=== PATIENT | male | born 1975 | race Caucasian/White ===

== ENCOUNTER 2016-10-21 11:51 | Emergency (ER) | payer OTHER ==
[~2016-10-21] VITALS: Ht 180.3 cm; Wt 109.3 kg
[~2016-10-21 11:51] MED LIST: IBUPROFEN200 M1 PO; LORTAB 5-325 M1 EACH PO; NORCO 5/3251 TABLET PO; REGLAN10 MG PO
[2016-10-21 13:10] LABS: HEMATOCRIT 42.8 % (38.0-50.0); MCH 29.6 PG (29.0-34.0); MCV 84.4 FL (86-99); MEAN PLAT.VOLUME 9.9 uM^3 (9.0-12.4); PLATELET COUNT 254 K/uL (156-360); RBC DIS.WIDTH-CV 12.8 % (11.8-14.6); RBC DIS.WIDTH-SD 38.6 % (39-53); RED BLOOD COUNT 5.07 M/uL (4.00-5.50)
[2016-10-21 13:18] LABS: CHLORIDE 106 mEq/L (99-109); POTASSIUM 4.1 mEq/L (3.7-5.4); SODIUM 139 mEq/L (136-147)
[2016-10-21 13:21] LABS: GLUCOSE 94 mg/dL (70-99)
[2016-10-21 13:22] LABS: ANION GAP 6 MEQ/L (2-14)
[2016-10-21 13:23] LABS: TOTAL BILIRUBIN 0.4 mg/dL (0.0-1.0)
[2016-10-21 13:24] LABS: ALKALINE PHOSPHATASE 87 IU/L (3-129); GFR ESTIMATE (CALCULATED) > 59 mL/min/
[2016-10-21 13:25] LABS: UREA NITROGEN (BUN) 10 mg/dL (9-23)
[2016-10-21 15:38] VITALS: BP 110/70
== END 2016-10-21 15:46 | disposition home or self-care (01) ==
LOC: EME 11:51
PROVIDERS: Emergency Medicine
DX: R42 Dizziness and giddiness (principal); H53.8 Other visual disturbances
CPT/HCPCS: 70450; 70496; 70498; 80053; 85027; 93005; 99281; 99285